=== PATIENT | female | born 1985 | race Two or more races ===

== ENCOUNTER 2024-07-11 14:42 | Emergency (ER) | payer OTHER ==
[~2024-07-11] VITALS: Ht 175.3 cm; Wt 54.4 kg
[2024-07-11] MEDS ORDERED: KETOROLAC TROMETHAMINE 30 MG VIAL IM STA (16:39)
[2024-07-11] MEDS ORDERED: FAMOTIDINE/PF 20 MG/2 ML VIAL IV PUSH STA (16:41)
[2024-07-11] MEDS ORDERED: FAMOTIDINE/PF 20 MG/2 ML VIAL ONE (16:54)
[2024-07-11] MEDS ORDERED: KETOROLAC TROMETHAMINE 30 MG VIAL ONE (16:54)
[2024-07-11 17:35] LABS: HEMATOCRIT 36.5 % (36.0-45.00); HEMOGLOBIN 12.5 g/dL (12.0-15.00); MEAN CELL VOLUME 90.4 fL (80.00-100.00); MEAN CORPUSCULAR HEMOGLOBIN 31.1 pg (27.00-32.0); MEAN CORPUSCULAR HGB CONC 34.4 g/dl (32.0-36.0); PLATELET COUNT 216 K/uL (150-450); RED BLOOD COUNT 4.04 M/uL (4.00-6.00); RED CELL DISTRIBUTION WIDTH 13.8 % (11.5-14.5)
== END 2024-07-11 18:44 | disposition home or self-care (01) ==
LOC: ER 14:43
PROVIDERS: General Practice
DX: R07.89 Other chest pain (principal)

== ENCOUNTER 2024-09-13 14:30 | Emergency (ER) | payer OTHER ==
[~2024-09-13] VITALS: Ht 175.3 cm; Wt 56.2 kg
[2024-09-13] MEDS ORDERED: HYOSCYAMINE SULFATE 0.125 MG TAB.SUBL SL ONE (16:15)
[2024-09-13] MEDS ORDERED: FAMOTIDINE/PF 20 MG/2 ML VIAL IV PUSH ONE (16:15)
[2024-09-13] MEDS ORDERED: KETOROLAC TROMETHAMINE 15 MG VIAL IV ONE (16:15)
[2024-09-13] MEDS ORDERED: ONDANSETRON HCL 2 MG/ML VIAL IV ONE (16:15)
[2024-09-13 16:30] LABS: HEMATOCRIT 40.3 % (36.0-45.00); HEMOGLOBIN 13.6 g/dL (12.0-15.00); MEAN CELL VOLUME 90.8 fL (80.00-100.00); MEAN CORPUSCULAR HEMOGLOBIN 30.6 pg (27.00-32.0); MEAN CORPUSCULAR HGB CONC 33.7 g/dl (32.0-36.0); PLATELET COUNT 220 K/uL (150-450); RED BLOOD COUNT 4.44 M/uL (4.00-6.00)
[2024-09-13 17:11] LABS: ALBUMIN 4.5 gm/dL (3.4-5.0); BILIRUBIN TOTAL 0.77 mg/dL (0.3-1.2); CALCIUM 9.5 mg/dL (8.5-10.1); CREATININE SERUM 0.78 mg/dL (0.55-1.02); GFR 81.8; GLOBULINA 3.2 G/DL (2.4-3.5); POTASSIUM 4.32 mEq/L (3.5-5.1); TOTAL PROTEIN 7.7 gm/dL (6.4-8.2)
== END 2024-09-13 19:11 | disposition home or self-care (01) ==
LOC: ER 14:32
PROVIDERS: General Practice
DX: K80.18 Calculus of gallbladder with other cholecystitis without obstruction (principal); R10.11 Right upper quadrant pain
CPT/HCPCS: 36415; 76700; 96365; 99284; J1885; J2405; J3490

== ENCOUNTER 2024-12-16 12:40 | Emergency (ER) | payer OTHER ==
[~2024-12-16] VITALS: Ht 175.3 cm; Wt 59.0 kg
[2024-12-16 13:27] VITALS: BP 124/75; O2SAT 100
[2024-12-16] MEDS ORDERED: KETOROLAC TROMETHAMINE 60 MG VIAL IM STA (16:23)
[2024-12-16] MEDS ORDERED: KETOROLAC TROMETHAMINE 60 MG VIAL IM ONE (16:28)
== END 2024-12-16 16:36 | disposition home or self-care (01) ==
LOC: ER 12:42
DX: S00.83XA Contusion of other part of head, initial encounter (principal); X58.XXXA Exposure to other specified factors, initial encounter; Y93.89 Activity, other specified; Y92.89 Other specified places as the place of occurrence of the external cause; Y99.8 Other external cause status